=== PATIENT | female | born 1995 ===

== ENCOUNTER 2017-01-31 00:48 | Emergency (ER) | payer MEDICAID ==
[2017-01-31 00:48] VITALS: BMI 24.0
[2017-01-31 00:56] VITALS: BP 115/68; PULSE 84; RESP 18; TEMP 98.7; O2SAT 100
[2017-01-31 08:22] LABS: BASO % 0.3 % (0.0-2.0); EOS # 0.1 K/uL (0.0-0.7); EOS % 0.8 % (0.0-4.0); HEMOGLOBIN 11.9 g/dL (12.0-16.0); LYMPH # 2.8 K/uL (1.0-4.3); LYMPH % 29.7 % (20.0-40.0); MEAN CELL VOLUME 89.7 fl (81.0-99.0); MEAN CORPUSCULAR HEMOGLOBIN 30.4 pg (27.0-31.0); MEAN CORPUSCULAR HGB CONC 33.9 g/dL (33.0-37.0); MEAN PLATELET VOLUME 8.9 fl (7.2-11.7); MONO # 0.5 K/uL (0.0-0.8); MONO % 5.9 % (0.0-10.0); NEUT # 5.9 K/uL (1.8-7.0); NEUT % 63.3 % (50.0-75.0); NRBC % 0.1 % (0.0-0.0); RBC 3.91 Mil/uL (3.80-5.20); RED CELL DISTRIBUTION WIDTH 13.2 % (11.5-14.5); WHITE BLOOD COUNT 9.4 K/uL (4.8-10.8)
[2017-01-31 09:02] LABS: URINE CLARITY CLOUDY (Clear); URINE COLOR YELLOW (YELLOW); URINE GLUCOSE (UA) NEG (Normal)
[2017-01-31 09:03] LABS: URINE BILIRUBIN NEGATIVE (NEGATIVE); URINE BLOOD MODERATE (NEGATIVE)
[2017-01-31 09:05] LABS: SQUAMOUS EPITHIAL 2 /hpf (0-5); URINE LEUKOCYTE ESTERASE LARGE Leu/uL (Negative); URINE NITRATE NEGATIVE (NEGATIVE); URINE UROBILINOGEN 0.2-1.0 mg/dL (0.2-1.0)
[2017-01-31 09:06] LABS: URINE BACTERIA RARE (<OCC)
[2017-01-31 09:17] LABS: BLOOD UREA NITROGEN 8 mg/dl (7-17); GFR AFRICAN-AMERICAN > 60; GFR NON-AFRICAN AMERICAN > 60
[2017-01-31 09:18] LABS: ALB/GLOB RATIO 1.5 (1.0-2.1); ALBUMIN 4.1 g/dL (3.5-5.0); ALT/SGPT 33 U/L (9-52); AST/SGOT 37 U/L (14-36); CALCIUM 8.8 mg/dL (8.4-10.2)
--- NOTE | 2017-01-31 17:22 | CT ---
PROCEDURE: CT Abdomen and Pelvis without. HISTORY: FLANK PAIN COMPARISON: None. TECHNIQUE: Contiguous axial images of the abdomen and pelvis. No IV or oral contrast given. Coronal and Sagittal reformats generated. Radiation dose: Total exam DLP = 340 mGy-cm. This CT exam was performed using one or more of the following dose reduction techniques: Automated exposure control, adjustment of the mA and/or kV according to patient size, and/or use of iterative reconstruction technique. FINDINGS: LOWER THORAX: Unremarkable. LIVER: Unremarkable. No gross lesion or ductal dilatation. GALLBLADDER AND BILE DUCTS: Unremarkable. PANCREAS: Unremarkable. No mass. No ductal dilatation. SPLEEN: Unremarkable. No splenomegaly. ADRENALS: Unremarkable. KIDNEYS AND URETERS: No obstructive uropathy or radiodense urolithiasis identified bilaterally. No perinephric reaction bilaterally either. BLADDER: Grossly unremarkable. REPRODUCTIVE: Limited cholecystic fluid. Intrauterine device is identified in utero. APPENDIX: Nonacute, but retrocecal. BOWEL: Unremarkable. No obstruction. No gross mural thickening. PERITONEUM: Trace fluid is seen in the cul-de-sac. An intrauterine device identified in utero once again. No free air. LYMPH NODES: Unremarkable. No enlarged lymph nodes. VASCULATURE: Unremarkable. No aortic aneurysm. BONES: No fracture or destructive lesion. OTHER FINDINGS: None. IMPRESSION: No radiodense urolithiasis, obstructive uropathy or perinephric reaction is appreciated bilaterally. Urinary bladder is largely decompressed. Limited fluid seen the cul-de-sac of uncertain origin. Intrauterine device is again seen in utero. Consider persist or worsen follow-up abdomen pelvis CT with oral and intravenous contrast is advised.
== END 2017-01-31 05:00 | disposition home or self-care (01) ==
LOC: H.ER 00:48
DX: N39.0 Urinary tract infection, site not specified (principal)